=== PATIENT | male | born 1975 | race American Indian/Alaskan Native ===

== ENCOUNTER 2017-09-23 14:34 | Emergency (ER) | payer OTHER ==
[2017-09-23] MEDS ORDERED: FIORICET PO ONE (21:48)
[2017-09-23] MEDS ORDERED: DECADRON IV ONE (21:49)
--- NOTE | 2017-09-23 22:06 | Emergency Department Report ---
ED General Adult HPI - General Chief complaint: Sore Throat Stated complaint: SORE THROAT Time Seen by Provider: 09/23/17 21:48 Source: patient Mode of arrival: Ambulatory Limitations: No Limitations - History of Present Illness Initial comments: Pt is a 42 M no significant pmhx who presents with OLMOS and sore throat. OLMOS was gradual in onset it is located to the front of his head. The OLMOS has been going on for one week. Nothing makes his OLMOS better or worse. He also denies havign any neck pain or any fever. Pt also states that he has a sore throat it has been going on for a week as well. Eating makes the pain worse nothing makes the pain better. - Related Data Previous Rx's Medication Instructions Recorded Last Taken Type Butalb/Acetamin/Caff 50-325-40 1 tab PO Q6HR PRN #20 tab 09/23/17 Unknown Rx [Fioricet] Allergies Allergy/AdvReac Type Severity Reaction Status Date / Time No Known Allergies Allergy Unverified 09/23/17 15:41 ED Review of Systems ROS: Stated complaint: SORE THROAT Other details as noted in HPI Constitutional: denies: chills, fever Eyes: denies: eye pain, eye discharge, vision change ENT: throat pain. denies: ear pain Respiratory: denies: cough, shortness of breath, wheezing Cardiovascular: denies: chest pain, palpitations Endocrine: no symptoms reported Gastrointestinal: denies: abdominal pain, nausea, diarrhea Genitourinary: denies: urgency, dysuria Musculoskeletal: denies: back pain, joint swelling, arthralgia Skin: denies: rash, lesions Neurological: headache. denies: weakness, paresthesias Psychiatric: denies: anxiety, depression Hematological/Lymphatic: denies: easy bleeding, easy bruising ED Past Medical Hx - Past Medical History Previous Medical History?: No - Surgical History Past Surgical History?: No - Social History Smoking Status: Never Smoker Substance Use Type: None - Medications Home Medications: Home Medications Medication Instructions Recorded Confirmed Last Taken Type Butalb/Acetamin/Caff 50-325-40 1 tab PO Q6HR PRN #20 tab 09/23/17 Unknown Rx [Fioricet] ED Physical Exam - General Limitations: No Limitations General appearance: alert, in no apparent distress - Head Head exam: Present: atraumatic, normocephalic - Eye Eye exam: Present: normal appearance - ENT ENT exam: Present: mucous membranes moist - Neck Neck exam: Present: normal inspection - Respiratory Respiratory exam: Present: normal lung sounds bilaterally. Absent: respiratory distress - Cardiovascular Cardiovascular Exam: Present: regular rate, normal rhythm. Absent: systolic murmur, diastolic murmur, rubs, gallop - GI/Abdominal GI/Abdominal exam: Present: soft, normal bowel sounds - Rectal Rectal exam: Present: deferred - Extremities Exam Extremities exam: Present: normal inspection - Back Exam Back exam: Present: normal inspection - Neurological Exam Neurological exam: Present: alert, oriented X3 - Psychiatric Psychiatric exam: Present: normal affect, normal mood - Skin Skin exam: Present: warm, dry, intact, normal color. Absent: rash ED Course Vital Signs 09/23/17 15:39 Temperature 99.2 F Pulse Rate 79 Respiratory 16 Rate Blood Pressure 139/86 O2 Sat by Pulse 99 Oximetry ED Medical Decision Making - Medical Decision Making Cdx: Headache 2/2 viral syndrome ddx: Viral pharngitis, strep throat I will order strep throat culture and I will give pt oral dexamethasone and oral fiorcet. Discussed plan with patient patient agrees with plan and additional verbal discharge instructions were given. Critical care attestation.: If time is entered above; I have spent that time in minutes in the direct care of this critically ill patient, excluding procedure time. ED Disposition Clinical Impression: Tension headache, Viral pharyngitis Disposition: DC- TO HOME OR SELFCARE Is pt being admited?: No Does the pt Need Aspirin: No Condition: Stable Instructions: Pharyngitis (ED) Prescriptions: Butalb/Acetamin/Caff 50-325-40 [Fioricet] 1 tab PO Q6HR PRN #20 tab PRN Reason: Headache Referrals: DAR BANDA MD [Primary Care Provider] - 3-5 Days
[2017-09-23 22:17] VITALS: BP 133/86
== END 2017-09-23 22:17 | disposition home or self-care (01) ==
LOC: ED 14:34
DX: G44.209 Tension-type headache, unspecified, not intractable (principal); J02.9 Acute pharyngitis, unspecified
CPT/HCPCS: 87116; 87430; 96374; 99282; J1100